=== PATIENT | female | born 1955 | race Caucasian/White ===

== ENCOUNTER 2018-06-04 13:59 | Outpatient (RCR) | payer SELFPAY | END 2018-07-01 23:59 | disposition home or self-care (01) | LOC: COCO 13:59 | PROVIDERS: PCP Family Medicine; Visit Provider Family Medicine ==

== ENCOUNTER 2018-06-05 07:30 | Outpatient (RCR) | payer SELFPAY | END 2018-07-01 23:59 | disposition home or self-care (01) | LOC: COCO 07:30 | PROVIDERS: PCP Family Medicine; Visit Provider Family Medicine ==

== ENCOUNTER 2018-11-23 05:44 | Outpatient (CLI) | payer OTHER, SELFPAY ==
--- NOTE | 2018-11-23 07:40 | DI.MAMMO_ITS ---
SYMPTOMS/DIAGNOSIS: SCREENING, Z12.31 MAMMOGRAM: Mammograms were interpreted according to the usual protocol including computer analysis with CAD system, tomosynthesis and C view imaging. The breasts are heterogeneously dense. No dominant mass or clumped microcalcification is identified in either breast. The current examination is compared with previous examinations including 07/17 and there has been no gross interval change in appearance in comparison with the previous studies. CONCLUSION: No specific evidence of malignancy at this time. Routine screening examinations are suggested at yearly intervals in this age group according to the ACS/ACR guidelines. Category I. Breast density Category C. MQSA ASSESSMENT OF FINDINGS: Negative. Category 1. Patient will receive a letter notifying them of these results. Bi-RADS category C. The breasts are heterogeneously dense, which may obscure small masses.
[2018-11-23 08:28] LABS: ALT 26 U/L (12-78); AST 25 U/L (15-37); Alkaline Phosphatase 93 U/L (46-116); Anion Gap 9.9 mmol/L (3-11); BUN 22 mg/dL (7-18); Bilirubin, Total 0.6 mg/dL (0.2-1.0); CO2 27.1 mmol/L (21.0-32.0); CREATININE 0.79 mg/dL (0.55-1.02); Calcium 9.4 mg/dL (8.5-10.1); Chloride 102 mmol/L (98-107); Cholesterol 334 mg/dL (50-200); Glucose 110 mg/dL (70-100); HDL Cholesterol 67 mg/dL (40-60); LDL CHOLESTEROL 246 mg/dL (<100); Potassium 4.3 mmol/L (3.5-5.1); Sodium 139 mmol/L (136-145); Total Protein 7.7 g/dL (6.4-8.2); Triglyceride 111 mg/dL (30-150)
== END 2018-11-23 06:04 ==
PROVIDERS: PCP Family Medicine; Visit Provider Family Medicine
DX: Z00.00 Encounter for general adult medical examination without abnormal findings (principal); Z13.220 Encounter for screening for lipoid disorders; Z13.228 Encounter for screening for other metabolic disorders; Z12.31 Encounter for screening mammogram for malignant neoplasm of breast
CPT/HCPCS: 36415; 77063; 77067; 80053; 80061; 83721

== ENCOUNTER 2019-06-26 14:56 | Outpatient (REF) | payer OTHER, SELFPAY | END 2019-06-26 15:16 | LOC: LBN 14:56 | PROVIDERS: PCP Family Medicine; Visit Provider Nurse Practitioner Family | DX: J06.9 Acute upper respiratory infection, unspecified (principal) | CPT/HCPCS: 87449 ==

== ENCOUNTER 2019-12-03 16:57 | Outpatient (REF) | payer OTHER, SELFPAY ==
--- NOTE | 2019-12-03 15:45 | PAPFT_PTH ---
PATIENT: Nina Ge LOC: [facility] U#:[id number] AGE/SX: 63/F ROOM: RE12/03/[address]: Shweta Lira MD, DC : 1955 BED: DIS: 12/03/2019 SPEC #: [id number] RECD: 12/04/19 12:48 STATUS: RUSTY REShantelle #: [id number] JENNIFFER: 12/03/19 15:[address]: Shweta Lira DEPT: [facility] Cytology RECD BY: Ashli Rojas Tissues: 1 - CX/ENDOCX FOR PAP SMEARS Procedures: PAP THIN PREP/UVM Screening HPV DNA PROBE Comments: [id number]
== END 2019-12-03 17:17 ==
LOC: LBN 16:57
PROVIDERS: PCP Family Medicine; Visit Provider Family Medicine
DX: Z12.4 Encounter for screening for malignant neoplasm of cervix (principal); Z11.51 Encounter for screening for human papillomavirus (HPV)
CPT/HCPCS: 88142; 87624

== ENCOUNTER 2020-11-16 22:04 | Outpatient (CLI) | payer OTHER, SELFPAY ==
--- NOTE | 2020-11-16 15:53 | DI.MAMMO_ITS ---
EXAM: MAMMO SCREENING CLINICAL HISTORY: screening.z12.39. TECHNIQUE: Bilateral full field digital CC and MLO mammographic images were obtained with 3D tomosyn thesis and utilizing computer aided detection (CAD). COMPARISON: Prior mammograms dating back to 2010, the most recent being November 2018. FINDINGS: There are no spiculated masses nor malignant appearing microcalcification groups. Benign macrocalcifi cations in the right breast are are again noted. There is no significant architectural distortion no r skin thickening-retraction. IMPRESSION: No radiographic evidence of malignancy. BI-RADS Category 1 - Negative Breast Density - Category B - Scattered areas of fibroglandular density Breast density Category C or D implies that the patient has dense breast tissue. Dense breast tissue can make it harder to find cancer on a mammogram. Dense breast tissue is also associated with an incr eased risk of breast cancer. This information about the result of the mammogram report was provided to the patient to raise their awareness. Use this report when you speak with the patient about their risks for breast cancer, which includes their family history. At that time, you may recommend additional screening tests (Ultrasoun d or MRI) as these tests may add significant information. A negative radiographic report should not delay biopsy if a dominant or clinically suspicious mass is present. Up to ten percent of cancers are not identified on mammography. A negative report may reinforce clinical impression. Adenosis and dense breasts may obscure an underlying neoplasm. False positive reports average 6 to 10%. Patient will receive a letter notifying them of these results.
== END 2020-11-16 22:05 ==
LOC: DI 22:07
PROVIDERS: PCP Family Medicine; Visit Provider Family Medicine
DX: Z12.31 Encounter for screening mammogram for malignant neoplasm of breast (principal)
CPT/HCPCS: 77063; 77067

== ENCOUNTER 2020-11-28 11:43 | Emergency (ER) | payer OTHER, SELFPAY ==
[2020-11-28 11:48] VITALS: BP 171/80; PULSE 84; RESP 14; TEMP 36.8; O2SAT 98
--- NOTE | 2020-11-28 12:15 | DI.CT_ITS ---
EXAM: CT HEAD WO CLINICAL HISTORY: fall/head injury/DAMON. TECHNIQUE: Imaging Protocol: Axial computed tomography images with coronal and sagittal reformatted images were created and reviewed COMPARISON: No exams were available for comparison FINDINGS: Ventricles and Extra axial spaces: Normal in size and morphology for the patient's age. Hemorrhage: None. Cerebral parenchyma: Normal. Midline shift: None. Brainstem/Cerebellum: Normal. Calvarium: Normal. Visualized Paranasal sinuses/Mastoids: Clear. Soft Tissues: Unremarkable. IMPRESSION: No acute intracranial process. RADIATION DOSE DELIVERED: 689.91mGy.cm Total DLP DATA REPOSITORY: All CT scans at this facility are submitted to the National Radiology Data Registry (NRDR) Dose Index Registry (DIR) with the [employer] (ACR). RADIATION OPTIMIZATION: All CT scans at this facility use at least one of these dose optimization te chniques: automated exposure control; mA and/or kV adjustment per patient size (includes targeted exa ms where dose is matched to clinical indication); or iterative reconstruction.
--- NOTE | 2020-11-28 13:03 | DI.VRAD_ITS ---
PROCEDURE INFORMATION: Exam: CT Head Without Contrast Exam date and time: 11/28/2020 12:52 PM Age: 64 years old Clinical indication: Pain; Headache not specified; Patient HX: Fall - blunt trauma to right side of head. TECHNIQUE: Imaging protocol: Computed tomography of the head without contrast. Radiation optimization: All CT scans at this facility use at least one of these dose optimization techniques: automated exposure control; mA and/or kV adjustment per patient size (includes targeted exams where dose is matched to clinical indication); or iterative reconstruction. COMPARISON: No relevant prior studies available. FINDINGS: Brain: Normal. No hemorrhage. Unremarkable white matter. No mass effect. Cerebral ventricles: No ventriculomegaly. Bones/joints: Unremarkable. No acute fracture. Paranasal sinuses: Visualized sinuses are unremarkable. No fluid levels. Mastoid air cells: Visualized mastoid air cells are well aerated. Soft tissues: Unremarkable. IMPRESSION: No acute intracranial abnormality. Dictated and Authenticated by: Olena Barlow MD. Ordering:DELLA Ireland MD
--- NOTE | 2020-11-28 13:12 | ED.GENADUL_ITS ---
Discharge Plan Disposition Patient Disposition: HOME Condition: Stable Discharge Details Clinical Impression: Head injury Primary Care Provider: Shweta Lira ED Provider: Beka Santiago Home Meds and New Rx's Prescriptions: Continued gabapentin 300 mg capsule 300 mg PO Q4 H PRN (Reason: pain) Qty: 100 RF: 4 fluticasone propionate 50 mcg/actuation spray,suspension 2 spray NS BID PRNRF: 0 flaxseed-omega3,6,9-fatty acid 1 EACH capsule 1 ea PO DAILY RF: 0 acetaminophen [Non-Aspirin Extra Strength] 500 MG tablet 1,000 mg PO Q4H PRN RF: 0 albuterol sulfate [ProAir HFA] 8.5 GM HFA aerosol inhaler 2 puff Inhalation Q4H PRN Qty: 3 RF: 12 clonazepam 0.5 mg tablet 0.5 mg PO TID PRN (Reason: anxiety) Qty: 90 RF: 1 ibuprofen 600 mg tablet 600 mg PO TID PRN (Reason: pain) Qty: 90 RF: 0 amitriptyline 25 mg tablet 50 mg PO HS Qty: 180 RF: 12 Discharge Instructions Instructions: Head Injury (ED) Additional Instructions: CT imaging of your head is negative. Cool compresses as tolerated. Omav-pha-ekdetuw Tylenol and/or Motrin as directed for discomfort. Please watch for new or worsening symptoms and return to the ER for any concerns. Otherwise contact your primary care provider on Monday to discuss outpatient reevaluation. Discharge Data Discharge Date/Time-TO BE ENTERED AT DEPARTURE: 11/28/20 13:22 Medical Decision Making This is a 64-year-old female, not anticoagulated, presents to the ER today for a right sided posterior head injury that she occurred just prior to arrival. Mechanical slip and fall on ice striking her head, no LOC. Reports localized discomfort but no global headache, visual changes, neck pain, nausea, vomiting, numbness, tingling, weakness, incontinence, other distracting injuries. She appears well, no acute distress. She is neurologically intact. Discussed o ptions such as CT imaging of the head for further evaluation of skull fracture and/or intracranial hemorrhage, pros and cons of radiation. Patient would like to pursue CT imaging. I believe this to be perfectly reasonable. CT imaging of the head read by radiology as negative. Discussed CT findings with patient. She remains neurologically intact. She is relieved, has no additional questions or concerns, and is comfortable discharge at this time. Head injury precautions were given. Medical Records Medical records reviewed: Yes I reviewed the patient's medical records. HPI General Mode of arrival: ambulatory . Date/Time Provider Initiated Documentation: 11/28/20 11:44 . Limitations to Documentation: no limitations . Information obtained by: patient . HPI Narrative: This is a 64-year-old female who reports past sickle history of anemia, anxiety, depression, hypertension, hyperlipidemia, presents to the ER today having sustained a head injury just prior to arrival. She states that she was walking outside, slipped on ice falling backwards striking the back right side of her head. Denies any LOC. She is not anticoagulated. She reports moderate pain at the site of injury but denies global headache, visual changes, neck pain, any symptoms prior to the fall, chest pain, shortness of breath, abdominal pain, nausea, vomiting, incontinence, numbness, tingling, weakness. She spoke with a friend who recommended coming to the ER for evaluation. Related Data Home Medications Medication Instructions Recorded Confirmed flaxseed-omega3,6,9-fatty acid 1 ea PO DAILY 02/11/14 11/28/20 acetaminophen [Non-Aspirin Extra 1,000 mg PO Q4H PRN 09/22/15 11/28/20 Strength] albuterol sulfate [ProAir HFA] 2 puff INHALATION Q4H PRN #3 04/30/18 11/28/20 canister fluticasone propionate 50 2 spray NS BID PRN bottle 06/26/19 11/28/20 mcg/actuation nasal spray,suspension gabapentin 300 mg capsule 300 mg PO Q4 H PRN #100 tab-cap 12/03/19 11/28/20 clonazepam 0.5 mg tablet 0.5 mg PO TID PRN #90 tab-cap 04/09/20 11/28/20 ibuprofen 600 mg tablet 600 mg PO TID PRN #90 tab 07/16/20 11/28/20 amitriptyline 25 mg tablet 50 mg PO HS #180 tab-cap 10/13/20 11/28/20 Previous Rx's Medication Instructions Recorded albuterol sulfate [ProAir HFA] 2 puff INHALATION Q4H PRN #3 07/30/18 canister gabapentin 300 mg capsule 300 mg PO Q4 H PRN #100 tab-cap 12/03/19 clonazepam 0.5 mg tablet 0.5 mg PO TID PRN #90 tab-cap 04/09/20 ibuprofen 600 mg tablet 600 mg PO TID PRN #90 tab 07/16/20 amitriptyline 25 mg tablet 50 mg PO HS #180 tab-cap 10/13/20 Allergies Allergy/AdvReac Type Severity Reaction Status Date / Time No Known Drug Allergies Allergy Verified 11/28/20 11:54 General Stated Complaint: HeadInjury GIULIANA: 3 Review of Systems Constitutional Constitutional: Denies headache(s) and Denies weakness Eyes Eyes: Denies change in vision ENT Ears, Nose, Mouth, and Throat: Denies headache(s) and Denies neck pain Cardiovascular Cardiovascular: Denies chest pain and Denies dyspnea Respiratory Respiratory: Denies dyspnea Gastrointestinal Gastrointestinal: Denies abdominal pain, Denies nausea and Denies vomiting Musculoskeletal Musculoskeletal: Denies neck pain, Denies numbness and Denies tingling Neurologic Neurologic: Denies headache(s), Denies numbness, Denies tingling and Denies weak ness [facility] Medical History Anemia 02/11/14 Annual physical exam (02/24/15) Anxiety 04/03/18 HENRI 7 SCORE=8 Bereavement due to life event 12/31/12 suicide of daughter Depressive disorder Dysfunctional uterine bleeding endometrial bx neg 12/08; Hx of anemia Essential (primary) hypertension 02/10/14 Family history of diabetes mellitus (DM) 02/11/14 Family hx of colon cancer mother had one cancerous polyp Fracture of orbital floor 06/20/08 Injury occurred 06/20/08--fracture of the inferior wall of the right orbit with herniation of fat in the inferior rectus muscle. Carlos hematuria repeat was normal Hematuria 08/24/15 retest in Sep 2015 Hyperlipidemia Insomnia Lumbar spine pain (09/01/14) MRI 08/15: severe DDD, Grade I spondylo; L3/4 disc bulge with inferior migr ation of disc material impingin the L4 nerve root Microscopic hematuria repeat was normal Mild intermittent reactive airway disease (01/18/16) Mucous polyp of cervix removed Smoker quit in 1999 Spondylolisthesis of lumbar region (08/25/14) Surgical History Appendectomy B/L LAMINECTOMIES AND FACETECTOMIES 09/15/15; [facility] Cervical Procedure ; POLYP REMOVED History of gynecologic surgery 10/02/99 polyp removed Hx of appendectomy S/P laminectomy 09/15/15 and facetactomies--bilateral Status post lumbar surgery (11/10/15) Family History Mother Hyperlipidemia Asthma Father , age 89 Diabetes Essential hypertension Depression Hyperlipidemia Sister Hyperlipidemia Brother Hyperlipidemia Asthma Maternal Grandfather No problems noted. Paternal Grandfather COPD (chronic obstructive pulmonary disease) Asthma Maternal Grandmother Essential hypertension Paternal Grandmother Essential hypertension Alzheimers disease Hyperlipidemia Brother Diabetes Brother Essential hypertension Brother Paraplegia Depression Son Asthma Son Depression Daughter , age 33 - suicide Suicide Social History Smoking/Tobacco Use Status: Former Tobacco Use Quit Date: 10/02/99 Tobacco: How many years used: 30 Smoking risk assessment performed?: Yes Alcohol Intake: current Alcohol Intake frequency: holidays/special occasions only Alcohol type: wine Drug use: Never Caregiver/Support person: No Household members: spouse Housing: house Communication Needs: None Do you need help understanding health information?: Never Pets and animals: No Sexually active: Yes Do you think of yourself as: straight/heterosexual Current gender identity: female What is your relationship status?: How often do you talk on the phone with friends or family?: once per week How often do you get together with friends or relatives?: once per week How often do you attend adventism or restoration services?: decline to answer Do you belong to any clubs or organized social groups?: yes Panel score (0-1 are the most socially isolated patients): 2 What type of physical activity do you participate in: walking and other Details: ellipitical, snowshoing Duration: 15-30 minutes/day Frequency: 5-6 times per week Yuko/Mormonism: Islam Special yuko needs: No Seatbelt use: always Helmet use: Yes Helmet use: always Drive intox or ride w/intox shuttle van driver: No Exam Const General: cooperative, healthy appearing, comfortable and no acute distress Orientation: alert, awake and oriented x3 [facility] Head: normal to inspection, no palpable skull fracture and normocephalic Head images: 1. Diffuse mild discomfort to palpation. There is no bony point tenderness, crepitus, erythema, ecchymosis or swelling. Skin is intact. Ears: external ears normal, TM's normal bilaterally and EAC's normal Face and sinus: normal facial exam Mouth: moist mucous membranes Eyes General: appearance normal, both eyes and all related structures Alignment and Position: alignment normal Periorbital: periorbital findings normal Eyelids: eyelids normal Conjunctivae: conjunctivae normal Sclera: sclerae normal Cornea: corneas normal Pupils: PERRL EOM: EOM intact bilaterally Direct ophthalmoscopy: normal light reflex Neck Neck: normal visual inspection, full ROM, trachea midline, supple and nontender Resp Effort & Inspection: normal respiratory effort and able to speak in complete sentences Auscultation: clear to auscultation bilaterally Cardio Rate: regular rate Rhythm: regular rhythm Back/Spine/Pelvis Back: No back tenderness Skin General skin exam: no rashes or lesions noted Neuro General: patient alert, patient awake, patient oriented x3, moves all extremities and no focal motor deficits Cranial Nerves: CN's II-XI intact bilaterally Cognition: normal cognition Speech: speech normal Gait: normal gait Motor: muscle tone normal throughout, no movement abnormalities noted and no fasciculations Sensory Exam: no sensory deficits noted Extrem General: normal to inspection, full ROM and capillary refill normal Psych Appearance: grossly normal Mental Status: mental status grossly normal Course Vital Signs Vital signs: Vital Signs Temperature 36.8 C 11/28/20 11:48 Pulse 84 11/28/20 11:48 Respiratory Rate 14 11/28/20 11:48 Blood Pressure 171/80 H 11/28/20 11:48 Pulse Oximetry 98 11/28/20 11:48 Temperature 36.8 C 11/28/20 11:48 Temperature Source Skin 11/28/20 11:48 Pulse 84 11/28/20 11:48 Respiratory Rate 14 11/28/20 11:48 Respiratory Effort 11/28/20 11:55 Blood Pressure 171/80 H 11/28/20 11:48 Blood Pressure Position Sitting 11/28/20 11:48 Pulse Oximetry 98 11/28/20 11:48 Oxygen Delivery Method Room Air 11/28/20 11:48 Oxygen Flow Rate 0 02/27/21 11:48 Pain Level 6 11/28/20 11:48
== END 2020-11-28 13:22 | disposition home or self-care (01) ==
PROVIDERS: Emergency Provider Physician Assistant; PCP Family Medicine
DX: S09.8XXA Other specified injuries of head, initial encounter (principal); W00.0XXA Fall on same level due to ice and snow, initial encounter
CPT/HCPCS: 99284; 70450; 99283

== ENCOUNTER 2021-07-27 21:32 | Outpatient (REF) | payer OTHER, SELFPAY ==
[2021-07-28 20:02] LABS: COVID-19 RT-PCR UVMMC Result Negative (Negative)
== END 2021-07-27 21:33 | disposition home or self-care (01) ==
LOC: LBN 21:32
PROVIDERS: Nurse Practitioner Family; PCP Family Medicine; Visit Provider Family Medicine
DX: Z20.822 Contact with and (suspected) exposure to COVID-19 (principal); R05.3 Chronic cough; R06.2 Wheezing
CPT/HCPCS: U0003

== ENCOUNTER 2022-02-10 00:54 | Outpatient (CLI) | payer OTHER, SELFPAY ==
--- NOTE | 2022-02-10 08:30 | DI.DEXA_ITS ---
Exam(s) XR DEXA BONE DENSITY W/WO ESTRELLA EXAM: XR DEXA BONE DENSITY W/WO ESTRELLA CLINICAL HISTORY: osteopenia,m85.80 TECHNIQUE: COMPARISON: CR LUMBAR SPINE COMPLETE from 01/03/2012 FINDINGS: DEXA scan was performed according to the usual protocol. Please see the accompanying data sheets. Findings for left hip scanning are T-score -1.4 with left femoral neck T-score -1.1. Prior examinati on of May 21 0 4 showed left hip T-score 0.4. Left forearm scanning shows T-score -0.7. IMPRESSION: The findings are consistent with osteopenia according to the WHO criteria. The lateral vertebral sca nogram shows no evidence of a vertebral compression fracture. RADIATION DOSE DELIVERED: Total DLP
== END 2022-02-10 01:14 ==
PROVIDERS: PCP Family Medicine; Visit Provider Family Medicine
DX: M85.88 Other specified disorders of bone density and structure, other site (principal)
CPT/HCPCS: 77080

== ENCOUNTER → 2022-02-24 02:44 | Outpatient (CLI) | payer OTHER, SELFPAY ==
--- NOTE | 2022-02-24 08:09 | DI.MAMMO_ITS ---
Exam(s) MAMMO SCREENING EXAM: MAMMO SCREENING CLINICAL HISTORY: screening, Z12.39 TECHNIQUE: Bilateral full field digital CC and MLO mammographic images were obtained with 3D tomosyn thesis and utilizing computer aided detection (CAD). COMPARISON: Available for comparison. FINDINGS: Masses/Architectural Distortion: None seen. Microcalcifications: No suspicious pleomorphic-type are seen. Skin Thickening/Nipple Retraction: None. IMPRESSION: 1. No significant interval change with no specific features of malignancy noted. 2. Unless there is more urgent need, screening mammography is recommended, as per [employer] guidelines. BI-RADS Category 1 - Negative Breast Density - Category B - Scattered areas of fibroglandular density Breast density category C or D implies that the patient has dense breast tissue. Dense breast tissue is very common and is not abnormal but dense breast tissue can make it harder to find cancer on a ma mmogram. Also, dense breast tissue may increase their breast cancer risk. This information about the result of the mammogram report was provided to the patient to raise their awareness. Use this report when you speak with the patient about their risks for breast cancer, which includes their family hist ory. At that time, you may recommend for more screening tests (Ultrasound or MRI) as they might be us eful based on their risk. A negative radiographic report should not delay biopsy if a dominant or clinically suspicious mass is present. Up to ten percent of cancers are not identified on mammography. A negative report may reinforce clinical impression. Adenosis and dense breasts may obscure an underlying neoplasm. False positive reports average 6 to 10%. Patient will receive a letter notifying them of these results.
== END ==
PROVIDERS: PCP Family Medicine; Visit Provider Family Medicine
DX: Z12.31 Encounter for screening mammogram for malignant neoplasm of breast (principal)
CPT/HCPCS: 77063; 77067

== ENCOUNTER 2022-05-24 13:19 | Outpatient (CLI) | payer OTHER, SELFPAY ==
--- NOTE | 2022-05-24 13:15 | RT.EKG_ITS ---
APPROVED REPORT Exam: Resting ECG Reason for Exam: Complains of irregular heart rate Patient Location: O HR:53 bpm ECG Measurements Heart Rate 53 AXIS UT 153 P 64 QRSd 98 QRS -35 QT 444 T 28 QTc 417 Conclusion Sinus rhythm...normal P axis, V-rate 50- 99 Left axis deviation...QRS axis (-30,-90)
== END 2022-05-24 13:20 | disposition home or self-care (01) ==
PROVIDERS: PCP Family Medicine; Visit Provider Family Medicine
DX: R09.89 Other specified symptoms and signs involving the circulatory and respiratory systems (principal)
CPT/HCPCS: 93010

== ENCOUNTER 2022-05-25 02:44 | Outpatient (CLI) | payer OTHER, SELFPAY ==
[2022-05-25 13:02] LABS: ALT 27 U/L (14-59); AST 32 U/L (15-37); Albumin 3.8 g/dL (3.4-5.0); Alkaline Phosphatase 91 U/L (46-116); Anion Gap 9.2 mmol/L (3-11); BUN 12 mg/dL (7-18); Bilirubin, Total 0.5 mg/dL (0.2-1.0); CO2 28.8 mmol/L (21.0-32.0); CREATININE 0.8 mg/dL (0.55-1.02); Calcium 9.1 mg/dL (8.5-10.1); Calculated LDL 223 mg/dL (<100); Chloride 100 mmol/L (98-107); Cholesterol 304 mg/dL (<200); Glucose 93 mg/dL (74-106); HDL Cholesterol 52 mg/dL (40-60); Potassium 4.7 mmol/L (3.5-5.1); Sodium 138 mmol/L (136-145); TSH (W/Ref FT4) 1.95 uIU/mL (0.36-3.74); Triglyceride 149 mg/dL (<150)
== END 2022-05-25 02:45 | disposition home or self-care (01) ==
LOC: LOS 02:44
PROVIDERS: PCP Family Medicine; Visit Provider Family Medicine
DX: Z00.00 Encounter for general adult medical examination without abnormal findings (principal); Z13.220 Encounter for screening for lipoid disorders; Z13.29 Encounter for screening for other suspected endocrine disorder
CPT/HCPCS: 36415; 80053; 80061; 84443

== ENCOUNTER 2022-06-13 04:14 | Outpatient (RCR) | payer OTHER, SELFPAY ==
--- NOTE | 2022-06-13 08:00 | HOLTER_ITS ---
APPROVED REPORT Conclusion This is a 48-hour Holter monitor ordered for tachycardia Predominant rhythm was sinus with an average heart rate of 72. Minimum was 52, maximum 111 There were moderately frequent premature ventricular contractions comprising 4.1% of total. There we re very rare couplets and triplets. Ventricular bigeminy was noted There were very rare atrial premature beats There was no atrial fibrillation, no high-grade AV block, no pauses greater than 3 seconds No patient symptoms were reported
== END 2022-07-01 23:59 | disposition home or self-care (01) ==
LOC: RT 04:14
PROVIDERS: PCP Family Medicine; Visit Provider Family Medicine
DX: R00.0 Tachycardia, unspecified (principal); I49.3 Ventricular premature depolarization; I49.8 Other specified cardiac arrhythmias
CPT/HCPCS: 93225; 93226

== ENCOUNTER 2022-12-05 15:22 | Outpatient (CLI) | payer OTHER, SELFPAY ==
--- NOTE | 2022-12-05 13:30 | DI.RAD_ITS ---
Exam(s) XR CHEST 2V PA LATERAL EXAM: XR CHEST 2V PA LATERAL CLINICAL HISTORY: evaluate pathology R05.9 COUGH TECHNIQUE: 2D digital imaging was performed. COMPARISON: No exams were available for comparison FINDINGS: HEART: Normal size. Aorta: Not dilated. Mild calcification of the arch. PULMONARY VASCULATURE: Normal. LUNGS: Clear. PLEURAL SPACE: No pleural effusion or pneumothorax. BONE:Unremarkable for age. IMPRESSION: No acute abnormality. DATA REPOSITORY: RADIATION DOSE DELIVERED:
== END 2022-12-05 15:42 ==
LOC: DI 15:23
PROVIDERS: PCP Family Medicine; Visit Provider Nurse Practitioner Family
DX: R05.8 Other specified cough (principal)
CPT/HCPCS: 71046

== ENCOUNTER 2023-05-04 15:30 | Outpatient (CLI) | payer OTHER, SELFPAY ==
--- NOTE | 2023-05-04 13:30 | DI.RAD_ITS ---
Exam(s) XR KNEE RT 3V AP,LAT,NEIL EXAM: XR KNEE RT 3V AP,LAT,NEIL CLINICAL HISTORY: r knee pain M25.561 M25.571 M79.673. TECHNIQUE: 2D digital imaging was performed. Three views. COMPARISON: CR RIGHT KNEE 3 VIEWS from 12/15/2017 FINDINGS: BONES: No acute fracture is present. No bony destructive lesion is seen. JOINTS: Joint spaces are maintained. Minimal periarticular spurring. The knee is normally aligned. No joint effusion is seen. SOFT TISSUE: Normal. IMPRESSION: Minimal degenerative changes. DATA REPOSITORY: RADIATION DOSE DELIVERED:
--- NOTE | 2023-05-04 13:30 | DI.RAD_ITS ---
Exam(s) XR FOOT RT COMPLETE EXAM: XR FOOT RT COMPLETE CLINICAL HISTORY: right foot, ankle, knee pain M25.561 M25.571 M79.673. TECHNIQUE: 2D digital imaging was performed. Three views. COMPARISON: No exams were available for comparison FINDINGS: BONES: No acute fracture is present. No bony destructive lesion is seen. Tiny plantar calcaneal spur . JOINTS: No dislocation present. Mild degenerative changes 1st MTP joint. Minimal degenerative rodrigez es at the tarsal metatarsal joints and talonavicular joint. SOFT TISSUE: Normal. IMPRESSION: Mild degenerative changes. DATA REPOSITORY: RADIATION DOSE DELIVERED:
--- NOTE | 2023-05-04 13:30 | DI.RAD_ITS ---
Exam(s) XR ANKLE RT COMPLETE EXAM: XR ANKLE RT COMPLETE CLINICAL HISTORY: r ankle pain M25.561 M25.571 M79.673. TECHNIQUE: 2D digital imaging was performed. Three views. COMPARISON: No exams were available for comparison FINDINGS: BONES: No acute fracture is present. No bony destructive lesion is seen. JOINTS: The ankle mortise is normally aligned. Spurring the SOFT TISSUE: Normal. IMPRESSION: Minimal degenerative changes. DATA REPOSITORY: RADIATION DOSE DELIVERED:
== END 2023-05-04 15:50 ==
LOC: DI 15:32
PROVIDERS: PCP Family Medicine; Visit Provider Family Medicine
DX: M25.561 Pain in right knee (principal); M25.571 Pain in right ankle and joints of right foot
CPT/HCPCS: 73562; 73610; 73630

== ENCOUNTER 2024-04-23 10:55 | Outpatient (CLI) | payer OTHER, SELFPAY ==
[2024-04-23 12:23] LABS: HCT 41.5 % (36.0-46.0); HGB 14.2 g/dL (11.2-15.7); MCH 31.8 pg (27.0-33.0); MCHC 34.2 % (32.0-36.0); MCV 93 fL (80-95); MPV 11.4 fL (8.0-11.0); Platelet Count 304 10^3/uL (130-400); RBC 4.47 10^6/uL (3.93-5.22); RDW 12.7 % (11.7-14.6); RDW-SD 43.2 fL; WBC 5.46 10^3/uL (4.4-10.8)
[2024-04-23 12:57] LABS: Hemoglobin A1C 5.5 % (<5.7)
[2024-04-23 13:06] LABS: ALT 24 U/L (14-59); AST 25 U/L (15-37); Albumin 4.1 g/dL (3.4-5.0); Alkaline Phosphatase 77 U/L (46-116); Anion Gap 9.1 mmol/L (3-11); BUN 15 mg/dL (7-18); Bilirubin, Total 0.33 mg/dL (0.2-1.0); CO2 27.9 mmol/L (21.0-32.0); CREATININE 0.9 mg/dL (0.55-1.02); Calcium 9.8 mg/dL (8.5-10.1); Calculated LDL 208 mg/dL (<100); Chloride 106 mmol/L (98-107); Cholesterol 305 mg/dL (<200); Estimated GFR 68.77 (mL/min/1.73m2); Glucose 95 mg/dL (74-106); HDL Cholesterol 62 mg/dL (40-60); Potassium 3.9 mmol/L (3.5-5.1); Sodium 143 mmol/L (136-145); TSH (W/Ref FT4) 1.33 uIU/mL (0.36-3.74); Triglyceride 178 mg/dL (<150)
[2024-04-24 11:25] LABS: Lyme Ab w Rflx to Lyme Confirm Negative (Negative)
[2024-04-25 23:42] LABS: Anaplasma phagocytophilum Negative (Negative); B. miyamotoi PCR Negative (Negative); Babesia divergens/MO-1 Negative (Negative); Babesia duncani Negative (Negative); Babesia microti Negative (Negative); Ehrlichia chaffeensis Negative (Negative); Ehrlichia ewingii/canis Negative (Negative); Ehrlichia muris eauclairensis Negative (Negative)
== END 2024-04-23 10:56 | disposition home or self-care (01) ==
LOC: LOS 10:55
PROVIDERS: PCP Family Medicine; Referring Provider Family Medicine; Visit Provider Family Medicine
DX: Z00.00 Encounter for general adult medical examination without abnormal findings (principal); M54.59 Other low back pain
CPT/HCPCS: 36415; 80053; 80061; 85027; 87798; 83036; 84443; 86618

== ENCOUNTER → 2024-05-06 19:15 | Outpatient (CLI) | payer OTHER, SELFPAY ==
--- NOTE | 2024-05-06 13:00 | DI.RAD_ITS ---
Exam(s) XR LUMBAR SPINE COMPLETE EXAM: XR LUMBAR SPINE COMPLETE CLINICAL HISTORY: LBP, s/p remote surgery, M54.5. TECHNIQUE: 2D digital imaging was performed. COMPARISON: CR XR DEXA BONE DENSITY W/WO ESTRELLA from 02/10/2022 FINDINGS: Five views There is posterior fusion hardware at L5-S1 level with posterior fusion rods and bilateral intrapedic ular screws at L5 and S1 levels. There is anterolisthesis of L5 upon S1 noted, approximately 1 cm. There is also disc space narrowing and anterolisthesis 1 level above the fusion with approximately 6 millimeters anterior listhesis L 4 upon L5 and disc space narrowing at this level. Other disc spaces above this level appear unremarkable. Visualized facet joints exhibit mild degenerative changes. S acroiliac joints unremarkable. IMPRESSION: Posterior fusion hardware L5-S1 with listhesis at this level as well as 1 level above the fusion. DATA REPOSITORY: RADIATION DOSE DELIVERED:
== END ==
PROVIDERS: PCP Family Medicine; Visit Provider Family Medicine
DX: M54.50 Low back pain, unspecified (principal); M43.17 Spondylolisthesis, lumbosacral region; Z98.1 Arthrodesis status
CPT/HCPCS: 72110

== ENCOUNTER 2024-05-15 01:45 | Outpatient (CLI) | payer OTHER, SELFPAY ==
--- NOTE | 2024-05-15 08:00 | DI.RAD_ITS ---
Exam(s) XR LUMBAR SPINE FLEX/EXT ONLY EXAM: XR LUMBAR SPINE FLEX/EXT ONLY CLINICAL HISTORY: Assess spondylolisthesis l 3-4,LOW BACK PAIN, M54.5. TECHNIQUE: 2D digital imaging was performed. COMPARISON: CR XR LUMBAR SPINE COMPLETE from 05/06/2024 FINDINGS: Two lateral views (flexion and extension) Again noted is posterior fusion hardware at L5-S1 level with posterior fusion rods and bilateral intr apedicular screws at these 2 levels. The relationship of the screws relative to the superior endplat es is satisfactory at both levels. There is no evidence of hardware fracture or obvious hardware loo sening. There appears to be osseous fusion across the fused L5-S1 disc space. The amount of listhesis at thi s level is stable. At 1 level above the fusion (L4-5) there is advanced disc space narrowing again noted and an element of anterolisthesis of L4 upon L5 which is approximately equal in flexion extension, approximately 5-6 millimeter anterior listhesis of L4 upon L5 which is evident both in flexion and extension. Vertebr al body above this level do not exhibit anterior or posterior listhesis with flexion and extension an d disc spaces at these levels are normal in height. No osseous lesions evident. Bone density normal IMPRESSION: As above. DATA REPOSITORY: RADIATION DOSE DELIVERED:
--- NOTE | 2024-05-15 08:00 | DI.MAMMO_ITS ---
Exam(s) MAMMO SCREENING EXAM: MAMMO SCREENING CLINICAL HISTORY: screening,Z12.39 TECHNIQUE: Bilateral full field digital CC and MLO mammographic images were obtained with 3D tomosyn thesis and utilizing computer aided detection (CAD). COMPARISON: Available for comparison. FINDINGS: Masses/Architectural Distortion: None seen. Microcalcifications: No suspicious pleomorphic-type are seen. Skin Thickening/Nipple Retraction: None. IMPRESSION: 1. No significant interval change with no specific features of malignancy noted. 2. Unless there is more urgent need, screening mammography is recommended, as per [employer] guidelines. BI-RADS Category 1 - Negative Breast Density - Category B - Scattered areas of fibroglandular density Breast density category C or D implies that the patient has dense breast tissue. Dense breast tissue is very common and is not abnormal but dense breast tissue can make it harder to find cancer on a ma mmogram. Also, dense breast tissue may increase their breast cancer risk. This information about the result of the mammogram report was provided to the patient to raise their awareness. Use this report when you speak with the patient about their risks for breast cancer, which includes their family hist ory. At that time, you may recommend for more screening tests (Ultrasound or MRI) as they might be us eful based on their risk. A negative radiographic report should not delay biopsy if a dominant or clinically suspicious mass is present. Up to ten percent of cancers are not identified on mammography. A negative report may reinforce clinical impression. Adenosis and dense breasts may obscure an underlying neoplasm. False positive reports average 6 to 10%. Patient will receive a letter notifying them of these results.
== END 2024-05-15 02:05 ==
LOC: DI 01:45
PROVIDERS: PCP Family Medicine; Visit Provider Family Medicine
DX: Z12.31 Encounter for screening mammogram for malignant neoplasm of breast (principal); M43.16 Spondylolisthesis, lumbar region
CPT/HCPCS: 72120; 77063; 77067

== ENCOUNTER 2024-07-02 15:18 | Outpatient (CLI) | payer OTHER, SELFPAY ==
--- NOTE | 2024-07-02 12:45 | DI.RAD_ITS ---
Exam(s) XR HIP RT COMPLETE AP PELVIS EXAM: XR HIP RT COMPLETE AP PELVIS CLINICAL HISTORY: r hip pain,m25.551. TECHNIQUE: 2D digital imaging was performed. Two views COMPARISON: CR LUMBAR SPINE AP, LAT from 10/18/2016 FINDINGS: BONES: No acute fracture is present. No bony destructive lesion is seen. Posterior fusion hardware at L4-5. Partial sacralization of the left L5 transverse process. JOINTS: No dislocation present. Mild bilateral hip joint space narrowing. Mild acetabular spurring. SI joints are unremarkable. SOFT TISSUE: Pelvic calcification likely a E calcified fibroid. IMPRESSION: Mild degenerative changes of both hips. DATA REPOSITORY: RADIATION DOSE DELIVERED:
== END 2024-07-02 15:38 ==
LOC: DI 15:18
PROVIDERS: PCP Family Medicine; Visit Provider Family Medicine
DX: M25.551 Pain in right hip (principal)
CPT/HCPCS: 73502

== ENCOUNTER 2024-07-08 14:43 | Outpatient (CLI) | payer OTHER, SELFPAY ==
--- NOTE | 2024-07-08 14:00 | DI.MRI_ITS ---
Exam(s) MR LUMBAR SPINE WO EXAM: MR LUMBAR SPINE WO CLINICAL HISTORY: severe right buttocks pain, leg,lumbar spine pain,spondylolisthesis, m43.16. TECHNIQUE: Multiplanar multisequence MRI of the Lumbar spine was performed. COMPARISON: MR MRI - LUMBAR SPINE WO CONTRAST from 08/11/2015 CR XR LUMBAR SPINE FLEX/EXT ONLY from 05/15/2024 CR XR HIP RT COMPLETE AP PELVIS from 07/02/2024 FINDINGS: Bones: The last intervertebral disc space is designated the L5/S1 level for the numbering purpose of this ex amination. The vertebral body heights are well maintained. Alignment: Unremarkable. The marrow signal characteristics are unremarkable except for degenerative signal changes in the endp lates at L3-4.. Cord: The conus tip ends at the T12 level. It is of normal size and signal intensity. T12-L1: No significant disc bulging. No focal disc herniation is present. No central spinal canal s tenosis.No neural foraminal stenosis. L1-2:No significant disc bulging. No focal disc herniation is present. No central spinal canal sten osis.No neural foraminal stenosis. L2-3:Mild posterior disc bulging. Facet degenerative changes and ligamentous hypertrophy no focal di sc herniation is present. Mild central spinal canal stenosis.No neural foraminal stenosis. L3-4: Moderate to severe loss of disc height. Endplate osteophytes projecting posteriorly. Slight r etrolisthesis of L4 with correct L3. Facet degenerative changes and ligamentous hypertrophy combine with the disc bulging to produce severe central canal stenosis. Severe right and moderate to severe left neural foraminal narrowing.No focal disc herniation is present. L4-5: Posterior fusion hardware creates artifact at this level. Fusion across the disc. Central can al somewhat obscured by artifact. There appears to be narrowing of the AP dimension of the central c anal at the level of the L4 vertebral body and L4-5 disc.Mild bilateral neural foraminal stenosis. L5-S1: The disc appears normal.No focal disc herniation is present. No central spinal canal stenosi s.No neural foraminal stenosis. The visualized SI joints and sacrum are unremarkable. Soft tissues: The paraspinal soft tissues are unremarkable. IMPRESSION: Degenerative disc changes and facet degenerative changes at L3-4 causes severe central canal stenosis as well as significant bilateral neural foraminal narrowing. Postsurgical changes at the L4-5 disc with posterior fusion hardware in place. Moderate central canal stenosis at L4-5. DATA REPOSITORY:
== END 2024-07-08 15:03 ==
LOC: DI 14:43
PROVIDERS: PCP Family Medicine; Visit Provider Family Medicine
DX: M43.16 Spondylolisthesis, lumbar region (principal)
CPT/HCPCS: 72148

== ENCOUNTER 2024-07-30 07:43 | Outpatient (CLI) | payer OTHER, SELFPAY ==
--- NOTE | 2024-07-30 06:00 | DI.RAD_ITS ---
Exam(s) XR PAIN CLINIC THORACIC SP 2V EXAM: XR PAIN CLINIC THORACIC SP 2V CLINICAL HISTORY: DX: Spinal Stenosis. TECHNIQUE: Fluoroscopy was provided for the referring physician for guidance with performing pain cl inic injection procedure. COMPARISON: No exams were available for comparison FINDINGS: Please see procedure note for details. Fluoro time: 39.7 seconds RADIATION DOSE DELIVERED: lubna Cintron=8.56 mGy
[2024-07-30 08:00] VITALS: BP 113/68; PULSE 69; RESP 20; TEMP 36.7; O2SAT 97
--- NOTE | 2024-07-30 08:15 | PDOC.PAIN ---
Date of service: 07/30/24 Time of Service: 08:37 Pain Managment Procedure Note Procedure Note Procedure Note: Lumbar Transforaminal Epidural Steroid Injection ? Location: BILATERAL L4-5 ? Pre-procedure Diagnosis: M54.17-Radiculopathy, lumbosacral region M54.16 Radiculopathy, lumbar region ? Post-procedure Diagnosis:? The same as above ? Sedation:? none ? Estimated blood loss:? less than 2 cc ? Surgeon:? Chris Hoang MD COMMENT: I am using the numbering of the x-ray as L4-5 above the level of her fusion. ? Procedure Detail:?? The procedure and potential risks were explained to the patient and informed written consent was obtained. The patient was escorted to the procedure room and placed in the prone position. Pillows were utilized for proper positioning and comfort. Time out was performed in the procedure room with nursing staff confirming the patient's identity, procedure to be performed, allergies, and any blood thinning or anti-platelet medications. The patient's lower back was prepped with ChloraPrep and draped in a sterile fashion. Sterile gloves were used, a face mask was worn, and new single dose vials of all medications were used with the top being swabbed with alcohol and given time to dry prior to withdrawal of medication. A right-sided oblique fluoroscopic view was obtained, with visualization of L4-5. Lidocaine 1% was used to anesthetize the skin. The tip of a 22-gauge, Quincke needle was advanced toward the 6 o'clock position of the superior pedicle at the target level.? It was advanced just under the pedicle to the neural foramen L4-5. Correct needle placement was confirmed through review of the fluoroscopy. Next, following negative aspiration, 1cc's of Omnipaque 240 contrast was injected under live fluoroscopy which showed good flow throughout the epidural space and no evidence of vascular flow or flow into adjacent compartments. Next, following negative aspiration, 7.5mg of preservative-free dexamethasone and 0.5ml of 0.5% bupivacaine was injected. The needle was gently removed.? The procedure was also performed in the same fashion at L4-5 left side.? The patient tolerated the procedure well.? Permanent images saved and recorded. Plan:? Follow up prn PAIN: PRE PROCEDURE 05/11 POST PROCEDURE 01/09 R, 11/11 L COMMENT: Patient's symptoms are not typical. The other thoughts I had were consideration for SI joint injection or facet injection above her fusion. She has an appointment with Dr. Pena the end of this week and will get back to me.
[2024-07-30 08:18] VITALS: O2SAT 98
[2024-07-30 08:20] VITALS: O2SAT 98
[2024-07-30 08:30] VITALS: O2SAT 96
[2024-07-30] MEDS: Omnipaque 240 MG/ML 50 ML BTL IJ (08:38)
[2024-07-30] MEDS: Bupivacaine 0.5% Pres-Free 10 ML VIAL IJ (08:38)
[2024-07-30] MEDS: Dexamethasone Sod. Phos./Pres-Free 10 MG/ML VIAL IJ (08:39)
[2024-07-30] MEDS: Nerve Block Tray 1 EACH MC (08:39)
== END 2024-07-30 07:44 | disposition home or self-care (01) ==
LOC: PC 07:43
PROVIDERS: PCP Family Medicine; Visit Provider Anesthesiology Pain Medicine
DX: M54.17 Radiculopathy, lumbosacral region (principal); M54.16 Radiculopathy, lumbar region
CPT/HCPCS: 00123; 64483; 72070; J0665; J1100; Q9967

== ENCOUNTER 2024-09-10 08:12 | Outpatient (CLI) | payer OTHER, SELFPAY ==
[2024-09-10 08:22] VITALS: BP 121/67; PULSE 71; RESP 18; TEMP 36.5; O2SAT 99
--- NOTE | 2024-09-10 08:23 | PDOC.PAIN ---
Date of service: 09/10/24 Time of Service: 09:04 Pain Managment Procedure Note Procedure Note Procedure Note: Lumbar Transforaminal Epidural Steroid Injection ? Location: BILATERAL L4-5 ? Pre-procedure Diagnosis: M54.17-Radiculopathy, lumbosacral region M54.16 Radiculopathy, lumbar region ? Post-procedure Diagnosis:? The same as above ? Sedation:? none ? Estimated blood loss:? less than 2 cc ? Surgeon:? Chris Hoang MD COMMENT: I am using the numbering of the x-ray as L4-5 above the level of her fusion. Patient had bilateral transforaminal injections at L4-5 fusion with good relief though transient. Will repeat with Depo-Medrol this time hopefully to get greater length of relief. ? Procedure Detail:?? The procedure and potential risks were explained to the patient and informed written consent was obtained. The patient was escorted to the procedure room and placed in the prone position. Pillows were utilized for proper positioning and comfort. Time out was performed in the procedure room with nursing staff confirming the patient's identity, procedure to be performed, allergies, and any blood thinning or anti-platelet medications. The patient's lower back was prepped with ChloraPrep and draped in a sterile fashion. Sterile gloves were used, a face mask was worn, and new single dose vials of all medications were used with the top being swabbed with alcohol and given time to dry prior to withdrawal of medication. A Left-sided oblique fluoroscopic view was obtained, with visualization of L4-5. Lidocaine 1% was used to anesthetize the skin. The tip of a 22-gauge, Quincke needle was advanced toward the 6 o'clock position of the superior pedicle at the target level.? It was advanced just under the pedicle to the neural foramen L4-5. Correct needle placement was confirmed through review of the fluoroscopy. Next, following negative aspiration, 1cc's of Omnipaque 240 contrast was injected under live fluoroscopy which showed good flow throughout the epidural space and no evidence of vascular flow or flow into adjacent compartments. Next, following negative aspiration, 40mg Depo-Medrol and 0.5ml of 0.5% bupivacaine was injected. The needle was gently removed.? The procedure was also performed in the same fashion on Right side but with 7.5 mg of dexamethasone as there was some initially some vascular uptake.? The patient tolerated the procedure well.? Permanent images saved and recorded. Plan:? Follow up prn PAIN: PRE PROCEDURE 02/08 POST PROCEDURE 11/11 left 0 right COMMENT: If pain returns we will have her come back in for reevaluation consider possibility of SI mediated pain versus radicular.
[2024-09-10 08:42] VITALS: O2SAT 98
[2024-09-10 08:50] VITALS: O2SAT 95
[2024-09-10 09:00] VITALS: O2SAT 95
[2024-09-10] MEDS: Dexamethasone Sod. Phos./Pres-Free 10 MG/ML VIAL IJ (09:08)
[2024-09-10] MEDS: methylPREDNISolone ACETATE 40 MG/ML VIAL IJ (09:08)
[2024-09-10] MEDS: Omnipaque 240 MG/ML 50 ML BTL IJ (09:08)
--- NOTE | 2024-09-10 09:08 | DI.RAD_ITS ---
Exam(s) XR PAIN CLINIC LUMBAR SP 2V EXAM: XR PAIN CLINIC LUMBAR SP 2V CLINICAL HISTORY: DX: Lumbar Radiculopathy. TECHNIQUE: Fluoroscopy was provided for the referring physician for guidance with performing pain cl inic injection procedure. COMPARISON: No exams were available for comparison FINDINGS: Please see procedure note for details. Fluoro time: 52.9 seconds RADIATION DOSE DELIVERED: Ka,r=16.4 mGy
[2024-09-10] MEDS: Bupivacaine 0.5% Pres-Free 10 ML VIAL IJ (09:09)
[2024-09-10] MEDS: Nerve Block Tray 1 EACH MC (09:09)
== END 2024-09-10 08:13 | disposition home or self-care (01) ==
LOC: PC 08:12
PROVIDERS: PCP Family Medicine; Visit Provider Anesthesiology Pain Medicine
DX: M54.17 Radiculopathy, lumbosacral region (principal); M54.16 Radiculopathy, lumbar region
CPT/HCPCS: 00123; 64483; 72100; J0665; J1010; J1100; Q9967

== ENCOUNTER 2024-09-24 14:40 | Emergency (ER) | payer OTHER, SELFPAY ==
[2024-09-24 14:43] VITALS: BP 170/73; PULSE 72; RESP 18; TEMP 36.4; O2SAT 97
--- NOTE | 2024-09-24 14:45 | DI.CT_ITS ---
Exam(s) CT HEAD CERVICAL SPINE WO EXAM: CT HEAD CERVICAL SPINE WO CLINICAL HISTORY: fall, neck pain and headache. TECHNIQUE: Imaging Protocol: Axial computed tomography images with coronal and sagittal reformatted images were created and reviewed COMPARISON: CT CT HEAD WO from 11/28/2020 FINDINGS: Head CT Ventricles and Extra axial spaces: Normal in size and morphology for the patient's age. Hemorrhage: None. Cerebral parenchyma: No evidence of mass or acute infarct. Mild atrophy. Midline shift: None. Brainstem/Cerebellum: Normal. Calvarium: Normal. Visualized Paranasal sinuses/Mastoids: Clear. Soft tissues: Mild soft tissue swelling of the left frontal bone. Cervical Spine CT BONES: Vertebral body heights are maintained. There is no evidence of acute fracture. Degenerative disc changes and facet degenerative changes are seen, most severe C5-6 and C6-7. SOFT TISSUES: No paraspinal hematoma. The airway appears intact. No pneumothorax is seen at the lung apices. IMPRESSION: Head CT: No acute abnormality. C-spine CT: Advanced degenerative changes, no acute abnormality. RADIATION DOSE DELIVERED: 1,224.02mGy.cm Total DLP DATA REPOSITORY: All CT scans at this facility are submitted to the National Radiology Data Registry (NRDR) Dose Index Registry (DIR) with the [employer] ([employer]). RADIATION OPTIMIZATION: All CT scans at this facility use at least one of these dose optimization te chniques: automated exposure control; mA and/or kV adjustment per patient size (includes targeted exa ms where dose is matched to clinical indication); or iterative reconstruction.
--- NOTE | 2024-09-24 14:51 | W.ED.GENAD ---
Discharge Plan Disposition Patient Disposition: Home Condition: Stable Discharge Details Clinical Impression: Cervical strain, Blunt head trauma Primary Care Provider: Shweta Lira ED Provider: Balta Hilliard Home Meds and New Rx's Prescriptions: Continued gabapentin 600 mg tablet 600 mg PO .Q4 H PRN (Reason: pain) Qty: 180 5RF naproxen 375 mg tablet 375 mg PO BID PRN (Reason: pain) Qty: 180 1RF Macular Health Formula 5-1-7.5 mg capsule PO [facility] PO amitriptyline 25 mg tablet 50 mg PO HS Qty: 180 12RF clonazepam 0.5 mg tablet 0.5 mg PO BID PRN (Reason: anxiety) Qty: 90 1RF fluticasone propionate 50 mcg/actuation spray,suspension 2 spray NS BID PRN (Reason: nasal congestion) Qty: 32 5RF levalbuterol tartrate [Xopenex HFA] 45 mcg/actuation HFA aerosol inhaler 2 inh inhalation Q6H Qty: 15 0RF Rx Instructions: Take 2 puffs every 6 hours as needed for cough, wheeze, or SOB acetaminophen [Non-Aspirin Extra Strength] 500 MG tablet 1,000 mg PO Q4H PRN Rx Instructions: NO more than 4000mg daily tirzepatide 10 mg/0.5 mL pen injector 10 mg subcut QWEEK Qty: 6 5RF glucosamine-chondroitin 900 mg tablet PO Discharge Instructions Additional Instructions: Your CAT scan did not show any concerning findings in your neck or head. If you notice signs of concussion such as persistent headaches or issues with the memory follow-up with your primary care provider If you feel more ill, have severe worsening headache or symptoms such as persistent vomiting return to the emergency department for reevaluation HPI General Mode of arrival: ambulatory. Date/Time Provider Initiated Documentation: 09/24/24 14:41. Limitations to Documentation: no limitations. Information obtained by: patient. History of Present Illness 68 year old F presents to the emergency department with the chief complaint of Head and neck pain status post fall, described as moderate, Quality is described as aching, and is localized to the head. Patient reports no radiation. Patient started experiencing this hour(s) (1) and it has been constant. No relieving factors improve symptom(s), No exacerbating factors reported . Patient notes denies chest pain, nausea/vomiting and shortness of breath. Patient did receive the following treatments prior to arrival, none Related Data Home Medications ?Medication ?Instructions ?Recorded ?Confirmed acetaminophen 500 mg tablet 1,000 mg PO Q4H PRN 09/22/15 09/24/24 (Non-Aspirin Extra Strength) amitriptyline 25 mg tablet 50 mg (2 x 25 mg) PO HS #180 04/23/24 09/24/24 tab-caps clonazepam 0.5 mg tablet 0.5 mg PO BID PRN anxiety #90 04/23/24 09/24/24 tab-caps fluticasone propionate 50 2 spray NS BID PRN nasal 04/23/24 09/24/24 mcg/actuation nasal congestion #32 grams spray,suspension levalbuterol tartrate 45 2 inh inhalation Q6H #15 grams 04/23/24 09/24/24 mcg/actuation aerosol inhaler (Xopenex HFA) lsrdapjz-dot-vtqkgy 5 mg-zeaxanth cap PO 04/23/24 07/17/24 1 mg-bilberry 7.5 mg-herbal capsule (Macular Health Formula) [facility] PO 04/23/24 07/17/24 tirzepatide 10 mg/0.5 mL 10 mg (0.5 mL) subcut QWEEK #6 mL 06/20/24 09/24/24 subcutaneous pen injector gabapentin 600 mg tablet 600 mg PO .Q4 H PRN pain #180 tabs 07/02/24 09/24/24 naproxen 375 mg tablet 375 mg PO BID PRN pain #180 tabs 07/02/24 09/24/24 antiarthritic combination no.2 900 mg PO 09/10/24 mg tablet (glucosamine-chondroitin) Previous Rx's ?Medication ?Instructions ?Recorded amitriptyline 25 mg tablet 50 mg (2 x 25 mg) PO HS #180 04/23/24 tab-caps clonazepam 0.5 mg tablet 0.5 mg PO BID PRN anxiety #90 04/23/24 tab-caps fluticasone propionate 50 2 spray NS BID PRN nasal 04/23/24 mcg/actuation nasal congestion #32 grams spray,suspension levalbuterol tartrate 45 2 inh inhalation Q6H #15 grams 04/23/24 mcg/actuation aerosol inhaler (Xopenex HFA) tirzepatide 10 mg/0.5 mL 10 mg (0.5 mL) subcut QWEEK #6 mL 06/20/24 subcutaneous pen injector gabapentin 600 mg tablet 600 mg PO .Q4 H PRN pain #180 tabs 07/02/24 naproxen 375 mg tablet 375 mg PO BID PRN pain #180 tabs 07/02/24 Allergies Allergy/AdvReac Type Severity Reaction Status Date / Time No Known Drug Allergies Allergy None Verified 09/24/24 14:48 General Stated Complaint: Fall/Non TraumaCriteria GIULIANA: 3 Review of Systems All systems reviewed & are unremarkable except as noted in HPI and below Constitutional Constitutional: Denies chills, Denies fever(s) and Denies weakness Eyes Eyes: Denies loss of vision Cardiovascular Cardiovascular: Denies chest pain and Denies dyspnea Respiratory Respiratory: Denies cough and Denies dyspnea Gastrointestinal Gastrointestinal: Denies abdominal pain, Denies nausea and Denies vomiting Neurologic Neurologic: Denies loss of vision and Denies weakness Comments: headache s/p fall Exam Const General: no acute distress Orientation: alert HENIL Head: no palpable skull fracture Ears: external ears normal General nose exam: external nose normal Mouth: moist mucous membranes Eyes General: appearance normal, both eyes and all related structures Alignment and Position: alignment normal Periorbital: periorbital findings normal Pupils: PERRL EOM: EOM intact bilaterally Neck Neck: normal visual inspection and tender Resp Effort & Inspection: normal respiratory effort and able to speak in complete sentences Cardio Rate: regular rate GI Palpation: soft and nontender Skin General skin exam: no rashes or lesions noted Neuro General: patient alert and patient oriented x3 Extrem General: normal to inspection Psych Mental Status: mental status grossly normal Course Vital Signs Vital signs: Vital Signs Temperature 36.4 C 09/24/24 14:43 Pulse 72 09/24/24 14:43 Respiratory Rate 18 09/24/24 14:43 Blood Pressure 170/73 H 09/24/24 14:43 Pulse Oximetry 97 09/24/24 14:43 Temperature 36.4 C 09/24/24 14:43 Temperature Source Temporal Artery Scan 09/24/24 14:43 Pulse 72 09/24/24 14:43 Respiratory Rate 18 09/24/24 14:43 Blood Pressure 170/73 H 09/24/24 14:43 Blood Pressure Position Supine 09/24/24 14:43 Pulse Oximetry 97 09/24/24 14:43 Oxygen Delivery Method Room Air 09/24/24 14:43 Oxygen Flow Rate 0 09/24/24 14:43 Pain Level 3 09/24/24 14:43 Medical Decision Making 68-year-old female with history of CAD for follow-up. She says she was walking to a store and did not notice there was a step up and tripped falling forward hitting her head on the metal door frame. She did not lose consciousness, no vomiting. She has a small 1 cm hematoma on the superior mid forehead. Otherwise no traumatic findings to the head, no lacerations. Her pupils are equal and reactive to light. She has no chest or abdomen pain. She was ambulatory on arrival with normal gait. No extremity pain. She has a soft nontender abdomen, no chest tenderness, denies any back pain. She does have left lateral mid neck pain and is tenderness area. No midline step-offs. Given the fall and her age will obtain CT head and C-spine and reassess. CT on my read and radiology read shows no acute findings. She is stable and has no new pain elsewhere. She has no midline C-spine tenderness with full range of motion of the C-spine cleared. She is stable for discharge, advised follow-up with her PCP if she has symptoms of a concussion and return precautions given Differential Diagnosis Differential Diagnosis: TBI, concussion, cervical fracture, cervical strain Quality:SDOH Health Related Social Needs: No Data to Display PFSH All Active Problems (Updated 09/24/24 @ 15:44 by Balta Hilliard MD) Blunt head trauma (Acute) Cervical strain (Acute) Lumbar radiculopathy (Acute) Spinal stenosis, lumbar region with neurogenic claudication (Acute) Right hip pain (Acute) Spondylolisthesis at L3-L4 level (Acute) Foot arch pain (Acute) Right ankle pain (Acute) Right knee pain (Acute) Nail avulsion of toe (Acute) Tachycardia (Acute) Osteopenia (Acute) Head injury (Acute) Annual physical exam (Acute 02/24/15) Anxiety (Chronic) 04/03/18 HENRI 7 SCORE=8 Hyperlipidemia (Chronic) Insomnia (Chronic) Lumbar spine pain (Chronic 09/01/14) MRI 08/15: severe DDD, Grade I spondylo; L3/4 disc bulge with inferior migration of disc material impingin the L4 nerve root Mild intermittent reactive airway disease (Chronic 01/18/16) Spondylolisthesis of lumbar region (Chronic 08/25/14) Medical History Family hx of colon cancer mother had one cancerous polyp Dysfunctional uterine bleeding endometrial bx neg 12/08; Hx of anemia Mucous polyp of cervix removed Microscopic hematuria repeat was normal Depressive disorder Carlos hematuria repeat was normal Smoker quit in 1999 Fracture of orbital floor 06/20/08 Injury occurred 06/20/08--fracture of the inferior wall of the right orbit with herniation of fat in the inferior rectus muscle. Bereavement due to life event 12/31/12 suicide of daughter Essential (primary) hypertension 02/10/14 Family history of diabetes mellitus (DM) 02/11/14 Anemia 02/11/14 Hematuria 08/24/15 retest in Sep 2015 Surgical History Hx of appendectomy History of gynecologic surgery 10/02/99 polyp removed S/P laminectomy 09/15/15 and facetactomies--bilateral Status post lumbar surgery (11/10/15) Cervical Procedure ; POLYP REMOVED B/L LAMINECTOMIES AND FACETECTOMIES 09/15/15; CONSTANCE FOX DAY Appendectomy Family History Mother Hyperlipidemia Asthma Father , age 89 Diabetes Essential hypertension Depression Hyperlipidemia Sister Hyperlipidemia Brother Hyperlipidemia Asthma Maternal Grandfather No problems noted. Paternal Grandfather COPD (chronic obstructive pulmonary disease) Asthma Maternal Grandmother Essential hypertension Paternal Grandmother Essential hypertension Alzheimers disease Hyperlipidemia Brother Diabetes Brother Essential hypertension Brother Paraplegia Depression Son Asthma Son Depression Daughter , age 33 - suicide Suicide Social History Smoking/Tobacco Use Status: Former Tobacco Use tobacco type: cigarettes Quit Date: 10/02/99 Tobacco: How many years used: 30 Second Hand Exposure: Yes Smoking risk assessment performed?: Yes Alcohol Intake: current Alcohol Intake frequency: holidays/special occasions only Alcohol type: wine Drug use: Never Substance use type: does not use Caregiver/Support person: No Household members: spouse Housing: house Communication Needs: Corrective Lenses Pets and animals: No Sexually active: Yes Do you think of yourself as: straight/heterosexual Current gender identity: female What is your relationship status?: How often do you talk on the phone with friends or family?: twice per week How often do you get together with friends or relatives?: twice per week Do you belong to any clubs or organized social groups?: yes Panel score (0-1 are the most socially isolated patients): 3 What type of physical activity do you participate in: walking Duration: 15-30 minutes/day Frequency: 3-4 times per week Yuko/Adventist: [employer] Special yuko needs: No Seatbelt use: always Helmet use: Yes Helmet use: always Drive intox or ride w/intox 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
[2024-09-24 15:32] VITALS: BP 163/77; PULSE 83; RESP 16; O2SAT 97
[2024-09-24 15:53] VITALS: BP 163/77; PULSE 83; RESP 16; O2SAT 99
== END 2024-09-24 15:53 | disposition home or self-care (01) ==
PROVIDERS: Emergency Provider Emergency Medicine; PCP Family Medicine
DX: S16.1XXA Strain of muscle, fascia and tendon at neck level, initial encounter (principal); S00.83XA Contusion of other part of head, initial encounter; I10 Essential (primary) hypertension; I25.10 Atherosclerotic heart disease of native coronary artery without angina pectoris; Z87.891 Personal history of nicotine dependence; W01.198A Fall on same level from slipping, tripping and stumbling with subsequent striking against other object, initial encounter; Y93.01 Activity, walking, marching and hiking
CPT/HCPCS: 99284; 70450; 72125

== ENCOUNTER 2024-12-09 07:33 | Outpatient (CLI) | payer OTHER, SELFPAY ==
--- NOTE | 2024-12-09 06:00 | DI.RAD_ITS ---
Exam(s) XR PAIN CLINIC LUMBAR SP 2V EXAM: XR PAIN CLINIC LUMBAR SP 2V CLINICAL HISTORY: DX: Lumbar Radiculopathy TECHNIQUE: 2D and realtime digital imaging was performed. CONTRAST MATERIAL: Refer to procedure report. COMPARISON: No exams were available for comparison FINDINGS: Fluoroscopy was provided for Dr. Hoang during the performance of a bilateral transforaminal epidur al steroid injection. Please refer to the procedure report for complete details. Ka,r=13.0 mGy IMPRESSION: RADIATION DOSE DELIVERED: 0.0 0.0 0
[2024-12-09 07:39] VITALS: BP 136/83; PULSE 82; RESP 20; TEMP 36.7; O2SAT 99
--- NOTE | 2024-12-09 07:40 | PDOC.PAIN ---
Date of service: 12/09/24 Time of Service: 08:32 Pain Managment Procedure Note Procedure Note Procedure Note: Lumbar Transforaminal Epidural Steroid Injection ? Location: BILATERAL L4-5 ? Pre-procedure Diagnosis: [M54.17-Radiculopathy, lumbosacral region] [M54.16 Radiculopathy, lumbar region] ? Post-procedure Diagnosis:? The same as above ? Sedation:? none ? Estimated blood loss:? less than 2 cc ? Surgeon:? Chris Hoang MD COMMENT: Patient has severe spinal stenosis above her fusion. I am using the numbering of the x-ray as L4-5 above the level of her fusion. Patient had bilateral transforaminal injections at L4-5 fusion with good relief for 3 months. Will repeat with Depo-Medrol again hopefully to get greater length of relief. Patient had a second opinion by a neurosurgeon at [facility] who agreed with Dr. Pena about revision if needed but would continue injections until he longer worked. ? Procedure Detail:?? The procedure and potential risks were explained to the patient and informed written consent was obtained. The patient was escorted to the procedure room and placed in the prone position. Pillows were utilized for proper positioning and comfort. Time out was performed in the procedure room with nursing staff confirming the patient's identity, procedure to be performed, allergies, and any blood thinning or anti-platelet medications. The patient's lower back was prepped with ChloraPrep and draped in a sterile fashion. Sterile gloves were used, a face mask was worn, and new single dose vials of all medications were used with the top being swabbed with alcohol and given time to dry prior to withdrawal of medication. A right-sided oblique fluoroscopic view was obtained, with visualization of L4-5. Lidocaine 1% was used to anesthetize the skin. The tip of a 22-gauge, Quincke needle was advanced toward the 6 o'clock position of the superior pedicle at the target level.? It was advanced just under the pedicle to the neural foramen L4-5. Correct needle placement was confirmed through review of the fluoroscopy. Next, following negative aspiration, 1cc's of Omnipaque 240 contrast was injected under live fluoroscopy which showed good flow throughout the epidural space and no evidence of vascular flow or flow into adjacent compartments. Next, following negative aspiration, 40mg Depo-Medrol and 0.5ml of 0.5% bupivacaine was injected. The needle was gently removed.? The procedure was also performed in the same fashion on Left side but with 7.5 mg of dexamethasone as there was some initially some vascular uptake.? The patient tolerated the procedure well.? Permanent images saved and recorded. Plan:? Follow up prn PAIN: PRE PRE PROCEDURE 7/10 left, 2/0 right POST PROCEDURE 0/10 left 1/10 right COMMENT: Will repeat as needed as long as patient gets good long-term relief. Coding Conscious Sedation used for procedure: No CPT Codes: Transforaminal Lumbar/Sacral (includes fluoro) *BILATERAL* - [id number] ([id number]~G5) Additional Codes: Date of Service (49492) Date of service: 12/09/24
[2024-12-09] MEDS: Dexamethasone Sod. Phos./Pres-Free 10 MG/ML VIAL IJ (08:25)
[2024-12-09] MEDS: methylPREDNISolone ACETATE 40 MG/ML VIAL IJ (08:32)
[2024-12-09 08:33] VITALS: PULSE 70; O2SAT 95
[2024-12-09] MEDS: Bupivacaine 0.5% Pres-Free 10 ML VIAL IJ (08:33)
[2024-12-09] MEDS: Omnipaque 240 MG/ML 50 ML BTL IJ (08:33)
[2024-12-09] MEDS: Nerve Block Tray 1 EACH MC (08:36)
== END 2024-12-09 07:34 | disposition home or self-care (01) ==
LOC: PC 07:34
PROVIDERS: PCP Family Medicine; Visit Provider Anesthesiology Pain Medicine
DX: M54.17 Radiculopathy, lumbosacral region (principal); M54.16 Radiculopathy, lumbar region
CPT/HCPCS: 64483; 72100; J0665; J1010; J1100; Q9967

== ENCOUNTER 2024-12-30 12:46 | Outpatient (CLI) | payer OTHER, SELFPAY ==
--- NOTE | 2024-12-30 12:00 | DI.RAD_ITS ---
Exam(s) XR SHOULDER RT COMPLETE 2+V EXAM: XR SHOULDER RT COMPLETE 2+V CLINICAL HISTORY: evaluate pathology,rt shoulder pain,m25.511. TECHNIQUE: 2D digital imaging was performed of the right shoulder. Five images were obtained. AP, Grashey, Y-view and axillary views were obtained. COMPARISON: No exams were available for comparison FINDINGS: BONES: No acute fracture is present. No bony destructive lesion is seen. JOINTS: No dislocation present. There are mild degenerative changes seen at the acromioclavicular jean carlos nt. The glenohumeral joint is well maintained. SOFT TISSUE: Normal. IMPRESSION: Mild degenerative changes seen in the right shoulder. DATA REPOSITORY: RADIATION DOSE DELIVERED:
== END 2024-12-30 13:06 ==
LOC: DI 12:46
PROVIDERS: PCP Family Medicine; Visit Provider Nurse Practitioner Family
DX: M25.511 Pain in right shoulder (principal)
CPT/HCPCS: 73030

== ENCOUNTER 2025-06-16 07:37 | Outpatient (CLI) | payer OTHER, SELFPAY ==
[2025-06-16 07:23] VITALS: BP 108/76; PULSE 72; RESP 18; TEMP 36.6; O2SAT 99
--- NOTE | 2025-06-16 07:52 | PDOC.PAIN_ITS ---
Date of service: 06/16/25 Time of Service: 08:33 Pain Managment Procedure Note Procedure Note Procedure Note: Lumbar Transforaminal Epidural Steroid Injection ? Location: BILATERAL L4-5 ? Pre-procedure Diagnosis: M54.17-Radiculopathy, lumbosacral region M54.16 Radiculopathy, lumbar region ? Post-procedure Diagnosis:? The same as above ? Sedation:? none ? Estimated blood loss:? less than 2 cc ? Surgeon:? Chris Hoang MD COMMENT: Patient has severe spinal stenosis above her fusion. I am using the numbering of the x-ray as L4-5 above the level of her fusion. Patient had bilateral transforaminal injections at L4-5 fusion with good relief for 3 months. Will repeat with Depo-Medrol again hopefully to get greater length of relief. Patient had a second opinion by a neurosurgeon at [facility] who agreed with Dr. Pena about revision if needed but would continue injections until he longer worked. Last inlection was 12/09/24 with good relief with some return of pain. ? Procedure Detail:?? The procedure and potential risks were explained to the patient and informed written consent was obtained. The patient was escorted to the procedure room and placed in the prone position. Pillows were utilized for proper positioning and comfort. Time out was performed in the procedure room with nursing staff confirming the patient's identity, procedure to be performed, allergies, and any blood thinning or anti-platelet medications. The patient's lower back was prepped with ChloraPrep and draped in a sterile fashion. Sterile gloves were used, a face mask was worn, and new single dose vials of all medicat ions were used with the top being swabbed with alcohol and given time to dry prior to withdrawal of medication. A right-sided oblique fluoroscopic view was obtained, with visualization of L4-5. Lidocaine 1% was used to anesthetize the skin. The tip of a 22-gauge, Quincke needle was advanced toward the 6 o'clock position of the superior pedicle at the target level.? It was advanced just under the pedicle to the neural foramen L4-5. Correct needle placement was confirmed through review of the fluoroscopy. Next, following negative aspiration, 1cc's of Omnipaque 240 contrast was injected under live fluoroscopy which showed good flow throughout the epidural space and some evidence of vascular flow. [place] were repositioned. Following negative aspiration, 15mg of preservative-free dexamethasone and 0.5ml of 0.5% bupivacaine was injected. The needle was gently removed.? The procedure was also performed in the same fashion at L-45 left.? The patient tolerated the procedure well and was discharged home with instructions.? Permanent images saved and recorded. Plan:? Follow up prn PAIN: PRE PROCEDURE 01/09 POST PROCEDURE 0 COMMENT: Will repeat as needed as long as patient gets good long-term relief. Coding Conscious Sedation used for procedure: No CPT Codes: Transforaminal Lumbar/Sacral (includes fluoro) *BILATERAL* - [id number] ([id number]~G5) Additional Codes: Date of Service ([id number]) Date of service: 06/16/25 Diagnoses: lumbar radiculitis
[2025-06-16 08:09] VITALS: PULSE 78; O2SAT 98
[2025-06-16 08:10] VITALS: PULSE 58; O2SAT 98
[2025-06-16 08:20] VITALS: PULSE 59; O2SAT 97
--- NOTE | 2025-06-16 08:35 | DI.RAD_ITS ---
Exam(s) XR PAIN CLINIC LUMBAR SP 2V EXAM: XR PAIN CLINIC LUMBAR SP 2V CLINICAL HISTORY: Dx: Lumbar Radiculopathy TECHNIQUE: 2D and realtime digital imaging was performed. CONTRAST MATERIAL: Refer to procedure report. COMPARISON: No exams were available for comparison FINDINGS: Fluoroscopy was provided for Dr. Hoang during the performance of a transforaminal epidural steroid injection. Please refer to the procedure report for complete details. Ka,r=13.0 mGy IMPRESSION: RADIATION DOSE DELIVERED: 0.0 0.0 0
[2025-06-16] MEDS: Omnipaque 240 MG/ML 50 ML BTL IJ (08:38)
[2025-06-16] MEDS: Nerve Block Tray 1 EACH MC (08:38)
[2025-06-16] MEDS: Dexamethasone Sod. Phos./Pres-Free 10 MG/ML VIAL IJ (08:38)
[2025-06-16] MEDS: Bupivacaine 0.5% Pres-Free 10 ML VIAL IJ (08:39)
== END 2025-06-16 07:38 | disposition home or self-care (01) ==
LOC: PC 07:39
PROVIDERS: PCP Family Medicine; Visit Provider Anesthesiology Pain Medicine
DX: M54.17 Radiculopathy, lumbosacral region (principal); M54.16 Radiculopathy, lumbar region
CPT/HCPCS: 64483; 72100; J0665; J1100; Q9967

== ENCOUNTER 2025-06-25 03:24 | Outpatient (CLI) | payer OTHER, SELFPAY ==
--- NOTE | 2025-06-25 06:00 | DI.MRI_ITS ---
Exam(s) MR UPPER JOINT RT WO EXAM: MR UPPER JOINT RT WO CLINICAL HISTORY: rotator cuff tear,rt,m75.100. TECHNIQUE: Multiplanar multisequence MRI was performed. COMPARISON: CR XR SHOULDER RT COMPLETE 2+V from 12/30/2024 FINDINGS: BONES: There is no fracture or contusion pattern. There is nonspecific marrow edema seen in the greater tuberosity and the superior aspect of the glenoid. JOINTS: There are moderate degenerative changes seen at the acromioclavicular joint. There is superior subluxation of the humeral head relative to the glenoid consistent with a rotator cuff tear. There is a glenohumeral joint effusion. TENDONS: Supraspinatus: There is a complete tear of the supraspinatus tendon with retraction to the level of the acromioclavicular joint. Infraspinatus: There is also a complete tear of the infraspinatus tendon with retraction proximal to the glenohumeral joint. Subscapularis: There is tendinosis of the subscapularis. Teres Minor: Unremarkable. Biceps and [place]: There is a tear of the biceps tendon. The biceps tendon appears heterogeneous and thickened at the level of the diaphysis of the humerus. MUSCLES: There is marked fatty atrophy of the infraspinatus muscle. There is mild fatty atrophy of the supraspinatus muscle. GLENOID LABRUM: There is heterogeneity of the posterior superior labrum consistent with a tear. SOFT TISSUES: Unremarkable. LIGAMENTS: The cortical clavicular ligament is intact. OTHER: There is fluid in the subacromial subdeltoid bursa consistent with a rotator cuff tear. IMPRESSION: 1. Complete tears of both the supraspinatus and infraspinatus tendons with retraction. The supraspinatus tendon is retracted to the level of the AC joint. The infraspinatus tendon is retracted to the level of the glenohumeral joint. 2. Biceps tendon tear. There is heterogeneity and thickening of the biceps tendon adjacent to the diaphysis of the humerus. 3. Tear of the posterior superior glenoid labrum. 4. Degenerative changes seen at the acromioclavicular joint. Subluxation of the humeral head relative to the glenoid consistent with a rotator cuff tear. 5. Glenohumeral joint effusion. 6. Fatty atrophy of the infraspinatus and supraspinatus muscles. DATA REPOSITORY:
== END 2025-06-25 03:44 ==
LOC: DI 03:24
PROVIDERS: PCP Family Medicine; Visit Provider Family Medicine
DX: M75.121 Complete rotator cuff tear or rupture of right shoulder, not specified as traumatic (principal)
CPT/HCPCS: 73221

== ENCOUNTER 2025-09-30 12:44 | Outpatient (CLI) | payer OTHER, SELFPAY ==
--- NOTE | 2025-09-30 06:00 | DI.RAD_ITS ---
Exam(s) XR PAIN CLINIC LUMBAR SP 2V EXAM: XR PAIN CLINIC LUMBAR SP 2V CLINICAL HISTORY: Dx: Lumbar Radiculopathy. TECHNIQUE: Fluoroscopy was provided for the referring physician for guidance with performing pain clinic injection procedure. COMPARISON: No exams were available for comparison FINDINGS: Please see procedure note for details. Fluoro time: 35.7 seconds RADIATION DOSE DELIVERED: Abdulazizr=9.98 mGy
[2025-09-30 12:23] VITALS: BP 151/74; PULSE 64; RESP 18; TEMP 36.6; O2SAT 99
--- NOTE | 2025-09-30 12:58 | PDOC.PAIN_ITS ---
Date of service: 09/30/25 Time of Service: 13:52 Pain Managment Procedure Note Procedure Note Procedure Note: Lumbar Transforaminal Epidural Steroid Injection ? Location: BILATERAL L4 ? Pre-procedure Diagnosis: M54.17-Radiculopathy, lumbosacral region M54.16 Radiculopathy, lumbar region ? Post-procedure Diagnosis:? The same as above ? Sedation:? none ? Estimated blood loss:? less than 2 cc ? Surgeon:? Chris Hoang MD COMMENT: Patient has severe spinal stenosis above her fusion. I am using the numbering of the x-ray as L4-5 above the level of her fusion. She has a lumbarized S1. Patient had bilateral transforaminal injections at L4-5 fusion with good relief for 3 months. Will repeat with Depo-Medrol again hopefully to get greater length of relief. Patient had a second opinion by a neurosurgeon at [facility] who agreed with Dr. Pena about revision if needed but would continue injections until he longer worked. Last injection was 06/16/25 with good relief with some return of pain recently ? Procedure Detail:?? The procedure and potential risks were explained to the patient and informed written consent was obtained. The patient was escorted to the procedure room and placed in the prone position. Pillows were utilized for proper positioning and comfort. Time out was performed in the procedure room with nursing staff confirming the patient's identity, procedure to be performed, allergies, and any blood thinning or anti-platelet medications. The patient's lower back was prepped with ChloraPrep and draped in a sterile fashion. Sterile gloves were used, a face mask was worn, and new single dose vials of all medications were used with the top being swabbed with alcohol and given time to dry prior to withdrawal of medication. A right-sided oblique fluoroscopic view was obtained, with visualization of L4-5. Lidocaine 1% was used to anesthetize the skin. The tip of a 22-gauge, Quincke needle was advanced toward the 6 o'clock position of the superior pedicle at the target level.? It was advanced just under the pedicle to the neural foramen L4-5. Correct needle placement was confirmed through review of the fluoroscopy. Next, following negative aspiration, 1cc's of Omnipaque 240 contrast was injected under live fluoroscopy which showed good flow throughout the epidural space and no evidence of vascular flow or flow into adjacent compartments. Next, following negative aspiration, 40mg Depo-Medrol and 0.5ml of 0.5% bupivacaine was injected. The needle was gently removed.? The procedure was also performed in the same fashion at left L4-5.? The patient tolerated the procedure well and was discharged home with instructions.? Permanent images saved and recorded. Plan:? Follow up prn PAIN: PRE PROCEDURE 02/08 POST PROCEDURE 0 COMMENT: Would repeat MRI and consider surgical evaluation if patient not getting relief from this procedure. Also consider bilateral L5. Coding Conscious Sedation used for procedure: No CPT Codes: Transforaminal Lumbar/Sacral (includes fluoro) *BILATERAL* - [id number] ([id number]~ G5) 50 - BILATERAL PROCEDURE Additional Codes: Date of Service () Diagnoses: M54.17-Radiculopathy, lumbosacral region M54.16 Radiculopathy, lumbar region
[2025-09-30 13:26] VITALS: PULSE 63; O2SAT 99
[2025-09-30 13:30] VITALS: PULSE 60; O2SAT 98
[2025-09-30 13:40] VITALS: PULSE 63; O2SAT 100
[2025-09-30] MEDS: Bupivacaine 0.5% Pres-Free 10 ML VIAL IJ (13:48)
[2025-09-30] MEDS: Nerve Block Tray 1 EACH MC (13:48)
[2025-09-30] MEDS: Omnipaque 240 MG/ML 50 ML BTL IJ (13:48)
[2025-09-30] MEDS: methylPREDNISolone ACETATE 40 MG/ML VIAL IJ (13:49)
== END 2025-09-30 12:45 | disposition home or self-care (01) ==
LOC: PC 12:44
PROVIDERS: PCP Family Medicine; Visit Provider Anesthesiology Pain Medicine
DX: M54.16 Radiculopathy, lumbar region (principal); M54.17 Radiculopathy, lumbosacral region
CPT/HCPCS: 64483; 72100; J0665; J1010; Q9967